=== PATIENT | female | born 1950 | race Caucasian/White ===

== ENCOUNTER → 2018-02-03 | Outpatient (CLI) | payer BC ==
[~2018-02-03] MED LIST: ASPI81 PO; BIOT2500 PO; BIOTCAP PO; CHOL1TAB29 PO; ECASA81 PO; FOLI200T OR; FOLI400T PO; ICOS1CAP PO; IRON27TA PO; METH2.5 IM/SQ; MVI PO; ROSU10 PO; THER50TA3 PO; TOFA5TAB PO; VITA20002 PO; VITA250L BUCCAL; VITA250L PO; ZOLP5TAB3 OR; [UNRECOGNIZED DRUG - CODE] IM
--- NOTE | 2018-02-03 13:21 | RADRPT ---
EXAM DATE/TIME: 02/03/2018 12:29 [facility] COMPARISON: No previous studies available for comparison. INDICATIONS : Evaluate for pneumonia, pneumothorax, or communicable disease. Pre-op hemilaminectomy. MEDICAL HISTORY : Coronary artery disease. SURGICAL HISTORY : Coronary artery stent. ENCOUNTER: Initial ACUITY: 1 day PAIN SCORE: Non-responsive. LOCATION: Bilateral chest FINDINGS: PA and lateral views of the chest demonstrate the lungs to be symmetrically aerated without evidence of mass, infiltrate or effusion. The cardiomediastinal contours are unremarkable. Osseous structure s are intact. CONCLUSION: 1. No acute cardiopulmonary findings. Nino Ventura MD on February 03, 2018 at 13:14 Board Certified Radiologist. This report was verified electronically.
--- NOTE | 2018-02-04 14:04 | EKG ---
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
== END ==
LOC: CPRE 11:11
PROVIDERS: ATTEND Neurological Surgery
DX: Z01.812 Encounter for preprocedural laboratory examination (principal); Z01.811 Encounter for preprocedural respiratory examination; Z01.810 Encounter for preprocedural cardiovascular examination; M48.061 Spinal stenosis, lumbar region without neurogenic claudication; R94.31 Abnormal electrocardiogram [ECG] [EKG]
CPT/HCPCS: 71046; 87640; 87641; 93005

== ENCOUNTER 2018-02-17 08:53 | Observation (INO) | payer BC ==
[~2018-02-17] VITALS: Ht 167.6 cm; Wt 98.5 kg
[~2018-02-17 08:53] MED LIST changes: +ACETAMINOPHEN 1000 MG/100 ML 100 ML IV ONE; +ARTIFICIAL TEARS OPTH OINT 3.5 APPLIC/3.5 GM TUBO ONE; -ASPI81 PO; -BIOT2500 PO; +BUPIVACAINE/EPINEPHRINE 0.5% PF 30 ML VIAL ONE; -FOLI200T OR; +GELFOAM SIZE 100 ONE; +GENTAMICIN SULFATE 80 MG/2 ML VIAL ONE; -IRON27TA PO; -METH2.5 IM/SQ; -MVI PO; +THROMBIN (TOPICAL) 5,000 UNIT VIAL ONE; -VITA20002 PO; -VITA250L PO; -ZOLP5TAB3 OR; +methylPREDNISolone ACETATE 40 MG/ML VIAL ONE
[2018-02-17] MEDS ORDERED: CEFAZOLIN INJ 2,000 MG in SODIUM CHLORIDE 0.9% INJ 100 ML IV SCH (09:30)
[2018-02-17] MEDS ORDERED: CHLORHEXIDINE GLUCONATE 2 % 1 PACK (2 CLOTHS) TOPICAL PRN (09:30)
[2018-02-17] MEDS ORDERED: LACTATED RINGER'S 1000 ML IV PRN (09:30)
[2018-02-17] MEDS ORDERED: METOPROLOL TARTRATE 25 MG TAB PO PRN (09:30)
[2018-02-17] MEDS ORDERED: INSULIN HUMAN REGULAR 1,000 UNITS/10 ML VIAL SQ PRN (09:30)
[2018-02-17] MEDS ORDERED: POVIDONE IODINE 5% (ANTISEPSIS KIT) 4 APPLICATIONS EACH NARE PRN (09:30)
[2018-02-17] MEDS ORDERED: SODIUM CHLORID 0.9% 500 ML IV PRN (09:30)
[2018-02-17] MEDS ORDERED: DIAZ10TA PO (10:01)
[2018-02-17] MEDS ORDERED: OXYC1TAB63 PO (10:01)
[2018-02-17] MEDS ORDERED: GENTAMICIN SULFATE 80 MG/2 ML VIAL ONE (11:18)
[2018-02-17] MEDS ORDERED: DEXAMETHASONE SOD PHOS 4 MG/ML VIAL IV ONE (12:00)
[2018-02-17] MEDS ORDERED: ROCURONIUM INJ 50 MG/5 ML SYRINGE IV PUSH ONE (12:00)
[2018-02-17] MEDS ORDERED: PHENYLEPH/NS 1000 MCG/10 ML SYR IV ONE (12:00)
[2018-02-17] MEDS ORDERED: PROPOFOL 200 MG/20 ML AMP IV ONE (12:00)
[2018-02-17] MEDS ORDERED: ONDANSETRON HCL 4 MG/2 ML VIAL IV ONE (12:00)
[2018-02-17] MEDS ORDERED: LIDOCAINE HCL 1% PF 5 ML SYRINGE OTHER ONE (12:00)
[2018-02-17] MEDS ORDERED: ACETAMINOPHEN/HYDROcodone 325 MG/10 MG TAB PO PRN ×2 (13:45)
[2018-02-17] MEDS ORDERED: MORPHINE SULFATE 4 MG/ML INJ IV PUSH PRN (13:45)
[2018-02-17] MEDS ORDERED: ACETAMINOPHEN 325 MG TAB PO PRN (13:45)
[2018-02-17] MEDS: CHLORHEXIDINE GLUCONATE 2 % 1 PACK (2 CLOTHS) TOPICAL SCH (14:15)
--- NOTE | 2018-02-17 14:32 | RADRPT ---
EXAM DATE/TIME: 02/17/2018 11:34 [facility] COMPARISON: No previous studies available for comparison. INDICATIONS : L2-L3 and L3-L4 lumbar laminectomy. Level localization. MEDICAL HISTORY : None. SURGICAL HISTORY : None. ENCOUNTER: Initial ACUITY: 1 day PAIN SCORE: Non-responsive. LOCATION: Lumbar spine. FINDINGS: Localization device has been placed posteriorly at the level of L2-L3 CONCLUSION: Localization L2-L3 Felix Albrecht MD on February 17, 2018 at 14:29 Board Certified Radiologist. This report was verified electronically.
--- NOTE | 2018-02-17 14:33 | RADRPT ---
EXAM DATE/TIME: 02/17/2018 11:34 [facility] COMPARISON: No previous studies available for comparison. INDICATIONS : L2-L3 and L3-L4 lumbar laminectomy. Level localization. MEDICAL HISTORY : None. SURGICAL HISTORY : None. ENCOUNTER: Initial ACUITY: 1 day PAIN SCORE: Non-responsive. LOCATION: Lumbar spine. FINDINGS: Level localization at L3-4 CONCLUSION: Level localization L3-4 Felix Albrecht MD on February 17, 2018 at 14:30 Board Certified Radiologist. This report was verified electronically.
[2018-02-17] MEDS ORDERED: *MEPERIDINE 25 MG INJ VIAL PERIprocedural Use ONLY ONE (14:40)
[2018-02-17] MEDS ORDERED: DO NOT ADM ANY ANTICOAGULANT DRUGS PRN (14:45)
[2018-02-17] MEDS ORDERED: MIDAZOLAM HCL 2 MG/2 ML VIAL ONE (15:00)
[2018-02-17] MEDS ORDERED: MORPHINE SULFATE 4 MG/ML INJ ONE (15:01)
[2018-02-17 15:15] VITALS: BP 126/60; PULSE 70; RESP 18; TEMP 97; O2SAT 97
[2018-02-17] MEDS ORDERED: MORPHINE SULFATE 2 MG/ML INJ IV PUSH PRN (15:30)
[2018-02-17] MEDS ORDERED: PILL SPLITTER OTHER PRN (15:30)
[2018-02-17 15:33] LABS: BILIRUBIN, URINE NEG (NEG); BLOOD, URINE SMALL (NEG); GLUCOSE,URINE NEG (NEG); KETONE, URINE 10 mg/dL (NEG); MUCUS URINE FEW /lpf (OCC); NITRITE,URINE NEG (NEG); SQUAMOUS EPITHELIAL CELL URINE <1 /hpf (0-5); URINE COLOR YELLOW (YELLW/STRAW); URINE LEUKOCYTE ESTERASE NEG (NEG)
[2018-02-17] MEDS: NS + KCL 20 MEQ INJ 1,000 ML IV SCH ×2 (15:37→23:44)
--- NOTE | 2018-02-17 17:32 | PD.OP ---
Operative Report Date of Surgery: Feb 17, 2018 Preoperative Diagnosis: Lumbar spinal stenosis Postoperative Diagnosis: Lumbar spinal stenosis Procedure: Left decompressive laminectomy, mesial facetectomy, foraminotomy, microsurgical resection of the disc Anesthesia: general endotracheal Surgeon: Ross Hart Tin Dipper(s): Cindy Jim Operation and Findings: INDICATIONS FOR THE SURGICAL PROCEDURE ms Ortiz is a 67 year-old female who presented with intractable back pain and guy evidence of lower extremity L3 and L4 radiculopathy. She failed maximum nonsurgical management including multiple modalities of conservative treatment as well as pain management interventions by an interventional pain specialist. A surgical decompression was indicated as a last resort. The [id number] details of the procedure, indications, alternatives, risks and potential complications were fully discussed with the patient. The patient fully understood. All the questions were answered. No guarantees were given. The patient voiced requesting the procedure and provided informed consents. The patient was offered the alternative of delaying the procedure and continuing with nonsurgical management. DETAILS OF THE SURGICAL PROCEDURE After the induction of general anesthesia, endotracheal intubation was performed. A Murphy catheter, bilateral DAVID hose and sequential compression devices were placed and kept throughout the procedure. The patient was positioned prone on a Christiano table over a Mitch frame. All pressure points were carefully padded with eggcrate mattress. The eyes were tapped shut after ointment was applied by the anesthesiologist to prevent corneal abrasion. A Keren hugger was placed over the exposed lower body to maintain control of the core body temperature. The lower lumbar region was prepped and draped in the usual sterile fashion. A spinal needle was placed on the paraspinal muscle and a cross-table lateral x-ray performed with a C-arm. The skin incision was made over the spinous process of L2 and L4 along the left paramidline. Small subcutaneous bleeders were controlled with a bipolar. The subcutaneous tissue and thoracolumbar fascia was opened with the Bovie and the spinous process of L2, L3, and L4 were exposed on the left. Then, using a Farfan elevator and a Bovie a subperiosteal dissection was performed over the spinous process lamina and facet at L-3, and L3-4 on the left side. A microdiscectomy self-retaining retractor was placed and an instrument was placed underneath the lamina of L5, and another cross-table lateral x-ray performed for radiological confirmation of the level. At this point in the procedure the operating microscope was draped in the usual sterile fashion and brought to the field. The rest of the surgical procedure was performed using microsurgical dissection technique with exception of the closure. Once the level was confirmed, a TPS drill brought to the field and a hemilaminectomy was performed at L-3, and L3-4 on the left side in standard fashion using the AM-8 drill bit, exposing the ligamentum flavum. The superior free border of the ligamentum flavum was from the dura with a ligament dissector and the ligamentum flavum was carefully removed with a 3 mm thin footplate Kerrison. The ligament Flavum and facets were significantly hypertrophic resulting on mass effect on the dural sac. Then, the medial aspect of the facet was drilled and undermined and the exiting L5 nerve root was identified and followed towards the foramen. A foraminotomy was performed with a 3 mm Kerrison. Then, the TPS drill was used to undermine the base of the spinous process, in order to carry out the decompression across the midline to the contralateral side. The ligamentum flavum across the midline was dissected from the dura with a ligament dissector and carefully removed with a 3 mm thin footplate Kerrison. An appropriate decompression of the dural sac and nerve root was achieved. Epidural veins located laterally to the dural sac were carefully coagulated with a bipolar and incised with microscissors. The dura was very scarred, and a pinhole durotomy was seen. this was sutured with a figure 8 6-0 Prolene. The closure was reinforced using duraseal at the end Gentle medial retraction of the dural sac allowed inspection of the disc space at L-3, and L3-4. The patient had broad-based disc protusions and a disk extrusion which combined with the hypertrophic facets and ligamentun flavum was producing significant stenosis with mass effect on the dural sac and nerve root. Microdiscectomy was then deemed necessary. The annulus fibrosus was thoroughly coagulated with the bipolar and incised with a #10 blade. Then, a microdiscectomy was carried out in the standard fashion using straight and up- biting pituitary forceps. A reverse angle curet was used to push the extruded disc fragments into the disc space so they could be removed with pituitary forceps. Special attention was placed on the middle nerve root and axilla of the nerve root where disc fragments were found, which were carefully dissected and pushed into the disc space and removed with the Kerrison. A very good decompression was achieved. The disc space was then irrigated with antibiotic solution. The incision was then thoroughly irrigated with antibiotic solution and hemostasis secured with the bipolar. A Valsalva maneuver failed to show any cerebrospinal fluid leak or bleeding. The incision was irrigated and closed in layers. 0 Vicryl with interrupted sutures was used to close the thoracolumbar fascia and superficial fascia. The subcutaneous tissue was closed with 3-0 Vicryl. The skin was closed with 4-0 running subcuticular Vicryl. Dermabond was applied to the skin. At the end of the procedure, the sponge, needle and instrument counts were all correct. Estimated blood loss was less than 80 cc. No blood transfusion was given. No intraoperative complications occurred. The patient received prophylactic antibiotics. The patient was then extubated and transferred to the recovery room in stable condition. Ross Hart MD Feb 17, 2018 17:32
[2018-02-17 20:00] VITALS: BP 121/87; PULSE 110; RESP 18; TEMP 97.4; O2SAT 98
[2018-02-17] MEDS: CEFAZOLIN INJ 2,000 MG in SODIUM CHLORIDE 0.9% INJ 100 ML IV SCH (20:20)
[2018-02-17] MEDS: DOCUSATE SODIUM 100 MG CAP PO SCH (20:20)
[2018-02-17] MEDS ORDERED: [UNRECOGNIZED DRUG - OTHER] PO SCH (21:00)
[2018-02-17] MEDS ORDERED: TOFACITINIB 10 MG PO SCH (21:00)
[2018-02-17] MEDS: oxyCODONE/ACETAMINOPHEN 5 MG/325 MG TAB PO PRN (22:25)
[2018-02-17 23:50] VITALS: BP 109/59; PULSE 61; RESP 18; TEMP 97.6; O2SAT 95
[2018-02-18] MEDS: oxyCODONE/ACETAMINOPHEN 5 MG/325 MG TAB PO PRN ×5 (02:49→22:24)
[2018-02-18] MEDS: CEFAZOLIN INJ 2,000 MG in SODIUM CHLORIDE 0.9% INJ 100 ML IV SCH ×2 (04:32→12:28)
[2018-02-18 05:04] VITALS: BP 102/56; PULSE 62; RESP 18; TEMP 97.7; O2SAT 95
[2018-02-18 08:00] VITALS: BP 95/50; PULSE 64; RESP 19; TEMP 97.6; O2SAT 94
[2018-02-18] MEDS: DIAZEPAM 10 MG TAB PO SCH (08:01)
[2018-02-18] MEDS: CYANOCOBALAMIN 100 MCG TAB PO SCH (08:01)
[2018-02-18] MEDS: DOCUSATE SODIUM 100 MG CAP PO SCH ×2 (08:01→20:30)
[2018-02-18] MEDS: ATORVASTATIN 20 MG TAB PO SCH (08:02)
[2018-02-18] MEDS: CHOLECALCIFEROL (VIT D3) 1000 UNIT TAB PO SCH (08:02)
[2018-02-18] MEDS: PANTOPRAZOLE SOD 40 MG DELAYED RELEASE TAB PO SCH (08:02)
[2018-02-18] MEDS: NS + KCL 20 MEQ INJ 1,000 ML IV SCH ×2 (08:02→15:41)
[2018-02-18 08:30] VITALS: O2SAT 96
[2018-02-18] MEDS: CHLORHEXIDINE GLUCONATE 2 % 1 PACK (2 CLOTHS) TOPICAL SCH (09:00)
[2018-02-18] MEDS ORDERED: FOLIC ACID 1 MG TAB PO SCH (09:00)
--- NOTE | 2018-02-18 10:57 | HHI.NSPN ---
(Yenny Lee) Note Status Status: Progress Note (Yenny Lee) Interval History Interval History Ms. Ortiz underwent a left decompressive laminectomy, mesial facetectomy, foraminotomy, microsurgical resection of the disc on Feb 17, 2018 for lumbar spinal stenosis. 02/18: doing well, some heaviness in her legs, reports numbness has resolved. remains on bed rest (Yenny Lee) Labs, Micro, & Vital Signs Results Date Time Temp Pulse Resp B/P (MAP) Pulse Ox O2 Delivery O2 Flow Rate FiO2 02/18/18 08:00 97.6 64 19 95/50 (65) 94 02/18/18 05:04 97.7 62 18 102/56 (71) 95 02/17/18 23:50 97.6 61 18 109/59 (76) 95 02/17/18 20:00 97.4 110 18 121/87 (98) 98 02/17/18 15:15 97.0 70 18 126/60 (82) 97 02/17/18 15:15 67 14 113/56 (75) 99 Nasal Cannula 2 02/17/18 15:00 69 14 111/55 (73) 99 Nasal Cannula 2 02/17/18 14:45 74 14 111/54 (73) 99 Nasal Cannula 2 02/17/18 14:30 74 14 118/58 (78) 99 Nasal Cannula 2 02/17/18 14:15 97.5 84 14 129/60 (83) 98 Nasal Cannula 2 Constitutional Vital Signs Date Time Temp Pulse Resp B/P (MAP) Pulse Ox O2 Delivery O2 Flow Rate FiO2 02/18/18 08:00 97.6 64 19 95/50 (65) 94 02/18/18 05:04 97.7 62 18 102/56 (71) 95 02/17/18 23:50 97.6 61 18 109/59 (76) 95 02/17/18 20:00 97.4 110 18 121/87 (98) 98 02/17/18 15:15 97.0 70 18 126/60 (82) 97 02/17/18 15:15 67 14 113/56 (75) 99 Nasal Cannula 2 02/17/18 15:00 69 14 111/55 (73) 99 Nasal Cannula 2 02/17/18 14:45 74 14 111/54 (73) 99 Nasal Cannula 2 02/17/18 14:30 74 14 118/58 (78) 99 Nasal Cannula 2 02/17/18 14:15 97.5 84 14 129/60 (83) 98 Nasal Cannula 2 (Yenny Lee) Review of Systems Constitutional: DENIES: Fever Cardiovascular: DENIES: Chest pain Neurologic: COMPLAINS OF: Localized weakness, DENIES: Headache, Paresthesias ( Yenny Lee) Physical Exam Ms. Ortiz is alert, awake and oriented to time, place and person. Speech is fluent. wound with clean, dry optifoam dressing Cranial nerve: pupils equal, round and reactive to light. Extra-ocular movements are intact. Facial motor are normal and symmetrical. Neck is soft and supple Motor: moves all major muscle groups of lower extremities with some weakness left proximal lower extremity (Yenny Lee) Medications Current Medications Current Medications Medications (Trade) Dose Ordered Sig/Neisha Route PRN Reason Start Time Stop Time Status Last Admin Dose Admin Chlorhexidine Gluconate (Chlorhexidine 2% Cloth) 1 pack DAILY TOPICAL 02/17/18 09:00 02/19/18 09:01 Cefazolin Sodium 2000 mg/Sodium Chloride 120 ml @ 240 mls/hr STAGE ELECTRICIAN IV 02/17/18 09:30 Lactated Ringer's 1,000 ml @ 30 mls/hr Q24H PRN IV SEE LABEL COMMENTS 02/17/18 09:30 02/20/18 09:29 Sodium Chloride 500 ml @ 30 mls/hr [id number] PRN IV SEE LABEL COMMENTS 02/17/18 09:30 02/20/18 09:29 Metoprolol Tartrate (Lopressor) 25 mg STAGE ELECTRICIAN PRN PO SEE LABEL COMMENTS 02/17/18 09:30 02/20/18 09:29 Povidone Iodine (Betadine 5% Antisepsis Kit) 1 applic STAGE ELECTRICIAN PRN EACH NARE SEE LABEL COMMENTS 02/17/18 09:30 02/20/18 09:29 Chlorhexidine Gluconate (Chlorhexidine 2% Cloth) 3 pack STAGE ELECTRICIAN PRN TOPICAL SEE LABEL COMMENTS 02/17/18 09:30 02/20/18 09:29 Insulin Human Regular (NovoLIN R INJ) See Protocol Table ... STAGE ELECTRICIAN PRN SQ SEE PROTOCOL TABLE 02/17/18 09:30 02/20/18 09:29 Cefazolin Sodium 2000 mg/Sodium Chloride 100 ml @ 200 mls/hr STAGE ELECTRICIAN IV 02/17/18 10:00 02/20/18 09:59 02/17/18 12:05 Potassium Chloride/Sodium Chloride 1,000 ml @ 100 mls/hr Q10H IV 02/17/18 13:44 02/17/18 15:37 Cefazolin Sodium 2000 mg/Sodium Chloride 120 ml @ 100 mls/hr Q8H IV 02/17/18 20:00 02/18/18 13:11 02/18/18 04:32 Docusate Sodium (Colace) 100 mg BID PO 02/17/18 21:00 02/18/18 08:01 Pantoprazole Sodium (Protonix) 40 mg DAILY PO 02/18/18 09:00 02/18/18 08:02 Morphine Sulfate (Morphine Inj) 2 mg Q2H PRN IV PUSH PAIN 1-6 UNTIL MARCELINA PO WELL 02/17/18 15:30 Morphine Sulfate (Morphine Inj) 4 mg Q2H PRN IV PUSH PAIN SCALE 7 TO 10 02/17/18 13:45 Acetaminophen (Tylenol) 650 mg Q4H PRN PO TEMPERATURE > 101.5 F 02/17/18 13:45 Cholecalciferol (Vitamin D3) 2,000 units DAILY PO 02/18/18 09:00 02/18/18 08:02 Cyanocobalamin (Vitamin B12) 250 mcg DAILY PO 02/18/18 09:00 02/18/18 08:01 Diazepam (Valium) 10 mg DAILY PO 02/18/18 09:00 02/18/18 08:01 Oxycodone/ Acetaminophen (Percocet 5-325 Mg) 1 tab Q4H PRN PO PAIN SCALE 1-10 02/17/18 14:00 02/18/18 08:03 Patient Own Medication PT OWN MED: (Icosap... BID PO 02/17/18 21:00 Future Hold Methotrexate Sodium (Methotrexate Pf Inj) 15 mg [place] IM 02/21/18 09:00 Atorvastatin Calcium (Lipitor) 20 mg DAILY PO 02/18/18 09:00 02/18/18 08:02 Patient Own Medication PT OWN MED: (Tofacitinib (Xelja... BID PO 02/17/18 21:00 Future Hold Miscellaneous Information ALL NURSING DEPARTME... UNSCH PRN .XX SEE LABEL COMMENTS 02/17/18 14:45 02/18/18 14:44 Miscellaneous (Pill Splitter) 1 ea UNSCH PRN OTHER SEE LABEL COMMENTS 02/17/18 15:30 (Yenny Lee) Medical Decision Making MDM Remarks 67 y/o female s/p left decompressive laminectomy 02/17/18 (Yenny Lee) Plan Plan Remarks cont bed rest today per Dr. Hart start mobilizing OOB tomorrow with PT SCDs and TEDs for dvt prophylaxis cont pain control IS every hour (Yenny Lee) Attending Statement The exam, history, and the medical decision-making described in the above note were completed with the assistance of the mid-level provider. I reviewed and agree with the findings presented. I attest that I had a [id number] encounter with the patient on the same day, and personally performed and documented my assessment and findings in the medical record. (Ross Hart MD) Yenny Lee Feb 18, 2018 10:57 Ross Hart MD Feb 19, 2018 20:00
[2018-02-18 11:54] VITALS: BP 100/51; PULSE 65; RESP 20; TEMP 97.5; O2SAT 98
--- NOTE | 2018-02-18 13:48 | HHI.DS ---
Discharge Summary Admission Date Feb 17, 2018 at 13:47 Discharge Date: Feb 19, 2018 Admitting Diagnosis s/p lumbar laminectomy (1) S/P lumbar laminectomy ICD Code: Z98.890 - Other specified postprocedural states Brief History Ms Ortiz is a 67 year-old female who presented with intractable back pain and guy evidence of lower extremity L3 and L4 radiculopathy. She failed maximum nonsurgical management including multiple modalities of conservative treatment as well as pain management interventions by an interventional pain specialist. A surgical decompression was indicated as a last resort. Significant Findings Laboratory Tests Test 02/17/18 14:00 Urine Ketones 10 mg/dL (NEG) Urine Occult Blood SMALL (NEG) Urine RBC 6 /hpf (0-3) Urine Mucus FEW /lpf (OCC) Imaging Last Impressions Lumbar Spine X-Ray 02/17/18 0000 Signed Impressions: Service Date/Time: Saturday, February 17, 2018 11:34 - CONCLUSION: Level localization L3-4 Felix Albrecht MD Hospital Course Ms. Ortiz underwent left decompressive laminectomy, mesial facetectomy, foraminotomy, microsurgical resection of the disc on Feb 17, 2018 for lumbar spinal stenosis. She was discharged home in stable conditions. Pt Condition on Discharge: Stable Discharge Disposition: Discharge Home Discharge Instructions DIET: Follow Instructions for: Heart Healthy Diet ACTIVITIES You can perform: Weight Bearing As Madhavi ADDITIONAL Activity Instructio: Avoid strenuous activities, heavy lifting over 5 lbs, overhead activities, repetitive bending, twisting, pushing, pulling or any activities which might result in stress over the spine. Avoid situation that will put at risk for falls. Use assistive device as needed for walking. Wear provided back brace when out of bed. New Medications: Oxycodone (Oxycodone) 10 Mg Tab 10 MG PO Q8H PRN for PAIN, #90 TAB 0 Refills Continued Medications: Aspirin DR (Aspirin DR) 81 Mg Tabdr 81 MG PO DAILY, TAB 0 Refills Biotin (Biotin) 5 Mg Cap 5 MG PO for Nutritional Supplement, #1 BOTTLE 0 Refills Cholecalciferol (Vitamin D3 Super Strength) 2,000 Unit Tab 2000 UNITS PO DAILY for Nutritional Supplement, #1 BOTTLE 0 Refills Cyanocobalamin (Vitamin B-12) 250 Mcg Lozg 250 MCG BUCCAL DAILY for Nutritional Supplement, #1 BOTTLE 0 Refills Diazepam (Diazepam) 10 Mg Tab 10 MG PO DAILY, TAB 0 Refills Folic Acid (Folic Acid) 0.4 Mg Tab 200 MCG PO DAILY for Nutritional Supplement, TAB 0 Refills USES 6 DAYS A WEEK ON DAYS SHE DOESNT INJECT METHOTREXATE Icosapent (Vascepa) 1 Gram Cap 1 GM PO BID, #60 CAP 0 Refills Methotrexate (Antirheumatic) (Rasuvo) 30 Mg/0.6 Ml Inj 0.6 ML IM WEEKLY Oxycodone-Acetaminophen (Oxycodone-Acetaminophen) 5-325 mg Tab 1 TAB PO Q4H PRN for PAIN, TAB 0 Refills Rosuvastatin (Crestor) 10 Mg Tab 10 MG PO DAILY for Cholesterol Management, #30 TAB 0 Refills Tofacitinib (Xeljanz) 5 Mg Tab 10 MG PO BID for Arthritis, #60 TAB 0 Refills Yenny Lee Feb 18, 2018 13:48
--- NOTE | 2018-02-18 13:48 | HHI.DCPOC ---
Discharge Care Plan Diagnosis: (1) S/P lumbar laminectomy Goals to Promote Your Health * To prevent worsening of your condition and complications * To maintain your health at the optimal level Directions to Meet Your Goals Take your medications as prescribed Follow your dietary instruction Follow activity as directed Keep your appointments as scheduled Take your immunizations and boosters as scheduled If your symptoms worsen call your PCP, if no PCP go to Urgent Care Center or Emergency Room Smoking is Dangerous to Your Health. Avoid second hand smoke Call the 24-hour hour crisis hotline for domestic abuse at Yenny Lee Feb 18, 2018 13:48
[2018-02-18 16:00] VITALS: BP 101/53; PULSE 69; RESP 18; TEMP 97.7; O2SAT 96
[2018-02-18 18:00] VITALS: BP 102/52; PULSE 64; RESP 18; TEMP 97.7; O2SAT 96
[2018-02-19] VITALS: BP 118/59; PULSE 68; RESP 15; TEMP 97.4; O2SAT 95
[2018-02-19] MEDS: oxyCODONE/ACETAMINOPHEN 5 MG/325 MG TAB PO PRN ×3 (04:42→12:52)
[2018-02-19] MEDS: NS + KCL 20 MEQ INJ 1,000 ML IV SCH ×2 (05:59→12:48)
[2018-02-19 08:09] VITALS: BP 118/60; PULSE 76; RESP 18; TEMP 98.1; O2SAT 94
[2018-02-19] MEDS ORDERED: OXYC-395 PO (09:12)
[2018-02-19] MEDS: CYANOCOBALAMIN 100 MCG TAB PO SCH (09:18)
[2018-02-19] MEDS: DOCUSATE SODIUM 100 MG CAP PO SCH (09:18)
[2018-02-19] MEDS: CHOLECALCIFEROL (VIT D3) 1000 UNIT TAB PO SCH (09:18)
[2018-02-19] MEDS: PANTOPRAZOLE SOD 40 MG DELAYED RELEASE TAB PO SCH (09:19)
[2018-02-19] MEDS: ATORVASTATIN 20 MG TAB PO SCH (09:19)
[2018-02-19] MEDS: DIAZEPAM 10 MG TAB PO SCH (09:19)
[2018-02-19] MEDS ORDERED: KETOROLAC TROMETHAMINE 60 MG/2 ML (IM) VIAL IM ONE (10:00)
[2018-02-19 12:06] VITALS: BP 115/66; PULSE 93; RESP 19; TEMP 99.4; O2SAT 98
[2018-02-19] MEDS: CHLORHEXIDINE GLUCONATE 2 % 1 PACK (2 CLOTHS) TOPICAL SCH (14:20)
[2018-02-21] MEDS ORDERED: METHOTREXATE SOD PF 50 MG/2 ML VIAL IM SCH (09:00)
== END 2018-02-19 14:38 | disposition home or self-care (01) ==
LOC: HSDC 08:53 → HSDI 13:47 → N06A 15:21
PROVIDERS: ADMIT Neurological Surgery; ATTEND Neurological Surgery
DX: M48.061 Spinal stenosis, lumbar region without neurogenic claudication (principal); M54.16 Radiculopathy, lumbar region; I25.10 Atherosclerotic heart disease of native coronary artery without angina pectoris; E78.5 Hyperlipidemia, unspecified; M06.9 Rheumatoid arthritis, unspecified
CPT/HCPCS: 00630; 63047; 72020; 76000; 81001; 94150; 96365; 96375; G0378; J0131; J0690; J1100; J1580; J1885; J2175; J2250; J2270; J2370; J2405; J3010; J3480; L0627; J1030